=== PATIENT | female | born 1950 | race Caucasian/White ===

== ENCOUNTER 2017-04-20 09:05 | Day surgery (SDC) | payer BC ==
[~2017-04-20] VITALS: Ht 152.4 cm; Wt 74.9 kg
[~2017-04-20 09:05] MED LIST: CHLO25TA13 PO; CHOL20003 PO; LANS15CA PO
[2017-04-20 09:50] VITALS: Ht 152.4 cm; Wt 74.9 kg
[2017-04-20] MEDS ORDERED: ESOM40CA PO (10:05)
[2017-04-20 10:21] VITALS: BP 116/59; PULSE 67; RESP 22
[2017-04-20 11:58] VITALS: BP 112/81; PULSE 62; RESP 14
[2017-04-20] MEDS ORDERED: FENTAnyl 50 MCG/ML VIAL ONE (12:34)
[2017-04-20] MEDS ORDERED: MIDAZOLAM 1 MG/ML 2 ML INJ ONE (12:34)
--- NOTE | 2017-04-20 13:31 | GILP ---
DATE OF PROCEDURE: NAME OF PROCEDURES: Colonoscopy, biopsy, and polypectomy. SURGEON: Keaton Maria MD PREOPERATIVE DIAGNOSIS: Screening colonoscopy. POSTOPERATIVE DIAGNOSES: 1. Colonoscopy all the way to the cecum. 2. Flat polyp in the cecum was removed in pieces using biopsy forceps. 3. Small transverse colon polyp was removed using the biopsy forceps. 4. Sigmoid colon polyp was removed using the snare and electrocautery. 5. Internal hemorrhoids. INDICATION FOR THE PROCEDURE: Ms. Sharita Simmons is a 66-year-old female patient who had a histo ry of colon polyps and change in the bowel habit. The patient was scheduled for screening colonosco py. The procedure and possible complications are well explained to the patient, she understood and conse nted to the procedure. DESCRIPTION OF PROCEDURE: Under the influence of fentanyl and Versed, the colonoscope was carefully introduced in the rectum and under direct vision, it was advanced all the way to the cecum. FINDINGS: The patient had a flat polyp in the cecum and it was removed in pieces using the biopsy f orceps. The patient also had a transverse colon polyp and it was removed using the biopsy forceps. She had a sigmoid colon polyp which was removed using the snare and electrocautery. She was noted to have internal hemorrhoids. She tolerated the procedure very well and there was no complication from the procedure. At the end of the procedures, she was awake with stable vital signs and she was discharged home to the care of her family. IMPRESSION: Please see postoperative diagnoses. PLAN: Await histopathology report. Next screening colonoscopy in 3 years. Dictated By: KEATON LE/IVAN Conf#: [id number] DID#: [id number]
== END 2017-04-20 14:48 | disposition home or self-care (01) ==
LOC: GIL 09:05
PROVIDERS: ATTEND Internal Medicine Gastroenterology
DX: Z12.11 Encounter for screening for malignant neoplasm of colon (principal); D12.3 Benign neoplasm of transverse colon; D12.0 Benign neoplasm of cecum; D12.5 Benign neoplasm of sigmoid colon; K64.8 Other hemorrhoids; I10 Essential (primary) hypertension
CPT/HCPCS: 45380; 88305; J2250; J3010; Z7610